=== PATIENT | male | born 1975 | race Caucasian/White ===

== ENCOUNTER 2024-08-30 11:02 | Outpatient (CLI) | payer MEDICARE, MEDICAID ==
[~2024-08-30] VITALS: Ht 190.5 cm; Wt 185.5 kg
[2024-08-30] VITALS (7 sets, daily range): BP systolic 121–151; BP diastolic 61–83; PULSE 78–104; RESP 18; O2SAT 98
[2024-08-30] MEDS ORDERED: aminophylline inj. 0 ML IV ONE (13:58)
[2024-08-30] MEDS: regadenoson 0.4mg/5ml syringe IV ONE (13:59)
== END 2024-08-30 23:59 | disposition home or self-care (01) ==
LOC: NM 11:02
PROVIDERS: ATTEND Internal Medicine Interventional Cardiology
DX: Z01.810 Encounter for preprocedural cardiovascular examination (principal); I25.89 Other forms of chronic ischemic heart disease
CPT/HCPCS: 78452; 93017; A9500; J2785; J0280

== ENCOUNTER 2024-09-26 09:46 | Outpatient (CLI) | payer MEDICARE, MEDICAID ==
[2024-09-26 10:20] LABS: BASOPHILS % (AUTO) 0.4 % (0-1); EOSINOPHILS # (AUTO) 0.1 X10'3 (0-0.9); EOSINOPHILS % (AUTO) 1.3 % (0-6); HEMATOCRIT 44.7 % (42.0-52.0); LYMPHOCYTES # (AUTO) 1.9 X10'3 (1.1-4.8); LYMPHOCYTES % (AUTO) 27.7 % (21-51); MEAN CORPUSCULAR HEMOGLOBIN 29.8 PG (27.0-31.0); MEAN CORPUSCULAR HGB CONC 33.5 g/dL (33.0-36.5); MEAN CORPUSCULAR VOLUME 88.7 FL (78-98); MEAN PLATELET VOLUME 9.6 FL (7.4-10.4); MONOCYTES # (AUTO) 0.5 X10'3 (0-0.9); MONOCYTES % (AUTO) 7.3 % (2-12); NEUTROPHILS # (AUTO) 4.3 X10'3 (1.8-7.7); NEUTROPHILS % (AUTO) 63.3 % (42-75); PLATELET COUNT 201 X10'3 (140-440); RED BLOOD COUNT 5.04 X10'6 (4.70-6.10); RED CELL DISTRIBUTION WIDTH 14.3 % (11.5-14.5); WHITE BLOOD COUNT 6.8 X10'3 (4.5-11.0)
[2024-09-26 10:27] LABS: ALBUMIN 3.9 G/DL (3.4-5.0); ANION GAP 10 (8-16); APTT 31 SECONDS (22-32); BLOOD UREA NITROGEN 15 MG/DL (7-18); BUN/CREATININE RATIO 22.7 (10.0-20.0); CALCIUM 8.9 MG/DL (8.5-10.1); CHLORIDE 104 MMOL/L (99-107); CHOL/HDL RATIO 3.6 (0.00-4.99); CHOLESTEROL 129 MG/DL (0-200); CREATININE 0.66 MG/DL (0.60-1.10); GLUCOSE 145 MG/DL (70-104); HDL CHOLESTEROL 36 MG/DL (35-60); INR 1.4 INR; LDL CHOLESTEROL 83 MG/DL (50-100); POTASSIUM 3.9 MMOL/L (3.5-5.1); PROTHROMBIN TIME 14.7 SECONDS (9.0-12.0); SODIUM 141 MMOL/L (135-145); TOTAL CARBON DIOXIDE 27.2 MMOL/L (24-32); TRIGLYCERIDES 83 MG/DL (20-135); eGFR > 90 ML/MIN
== END 2024-09-26 23:59 | disposition home or self-care (01) ==
LOC: LAB 09:46
PROVIDERS: ATTEND Internal Medicine Interventional Cardiology
DX: Z01.818 Encounter for other preprocedural examination (principal); K80.20 Calculus of gallbladder without cholecystitis without obstruction; K42.9 Umbilical hernia without obstruction or gangrene; I10 Essential (primary) hypertension; I48.91 Unspecified atrial fibrillation; E78.5 Hyperlipidemia, unspecified
CPT/HCPCS: 36415; 80048; 80061; 85025; 85610; 85730

== ENCOUNTER 2024-10-02 09:51 | Day surgery (SDC) | payer MEDICARE, MEDICAID ==
[2024-10-02] VITALS (8 sets, daily range): BP systolic 126–143; BP diastolic 70–84; PULSE 82–102; RESP 14–15; TEMP 98.4; O2SAT 95–98
[~2024-10-02] VITALS: Ht 190.5 cm; Wt 191.0 kg
[2024-10-02] MEDS ORDERED: OMEP20CA16 PO (10:30)
[2024-10-02] MEDS ORDERED: SIMV-42 PO (10:30)
[2024-10-02] MEDS ORDERED: DILT-117 PO (10:30)
[2024-10-02] MEDS ORDERED: LISI10TA27 PO (10:30)
[2024-10-02] MEDS ORDERED: RIVA20TA PO (10:30)
[2024-10-02] MEDS ORDERED: ALBU1.257 INH (10:35)
[2024-10-02] MEDS ORDERED: ACET-890 PO (10:35)
[2024-10-02] MEDS ORDERED: ALBU10.7 INH (10:35)
[2024-10-02] MEDS: diphenhydrAMINE 25mg capsule PO PRN (11:41)
[2024-10-02] MEDS: LORazepam 0.5 MG tablet PO PRN (11:41)
[2024-10-02] MEDS: normal saline 1,000 ML IV SCH (11:41)
[2024-10-02] MEDS ORDERED: LIDOcaine 1% (10mg/ml) 2ml vial ONE (12:45)
[2024-10-02] MEDS ORDERED: heparin 1,000unit/ml 10ml vial 10 ML ONE (12:45)
[2024-10-02] MEDS ORDERED: fentaNYL/PF 50MCG/1 ML 2ML syringe ONE (12:45)
[2024-10-02] MEDS ORDERED: verapamil 2.5 mg/ml inj IV ONE (12:45)
[2024-10-02] MEDS ORDERED: iohexol 350MG/ML 100ml bottle IV ONE (12:45)
[2024-10-02] MEDS ORDERED: midazolam 1 mg/ML 2ml injection ONE (12:45)
[2024-10-02] MEDS ORDERED: nitroGLYCERIN 500mcg/5mL D5W 5 ML IV ONE (12:46)
[2024-10-02] MEDS ORDERED: HYDROcodone/acetaminophen 10/325mg tab PO PRN (14:05)
[2024-10-02] MEDS ORDERED: HYDROcodone/acetaminophen 5mg/325mg tablet PO PRN (14:05)
== END 2024-10-02 16:00 | disposition home or self-care (01) ==
LOC: SSTAY O 09:51
PROVIDERS: ATTEND Student in an Organized Health Care Education/Training Program
DX: R94.39 Abnormal result of other cardiovascular function study (principal); I25.2 Old myocardial infarction; I10 Essential (primary) hypertension; E11.9 Type 2 diabetes mellitus without complications; E78.00 Pure hypercholesterolemia, unspecified; J44.89 Other specified chronic obstructive pulmonary disease; E66.9 Obesity, unspecified; I48.91 Unspecified atrial fibrillation; G47.33 Obstructive sleep apnea (adult) (pediatric); Z79.01 Long term (current) use of anticoagulants; Z79.899 Other long term (current) drug therapy; Z68.43 Body mass index [BMI] 50.0-59.9, adult; Z88.0 Allergy status to penicillin; Z82.49 Family history of ischemic heart disease and other diseases of the circulatory system
CPT/HCPCS: 82948; 93005; 93458; A6258; A6402; C1894; J1644; J2003; J2250; J3010; J3490; J7030; Q0163; Q9967; Z7610; 99152; A6449; C1769